=== PATIENT | male | born 2000 | race Two or more races ===

== ENCOUNTER 2024-05-12 08:42 | Emergency (ER) | payer MEDICAID, OTHER ==
[~2024-05-12] VITALS: Ht 167.6 cm; Wt 56.3 kg
[2024-05-12 09:00] VITALS: BP 112/61; PULSE 114; RESP 16; TEMP 98.3; O2SAT 100
[2024-05-12] MEDS: KETOROLAC TROMETH 60MG/2ML VIAL IM ONE (09:24)
[2024-05-12] MEDS: methylPREDNISolone SOD SUCC 125 MG/2 ML VL IM ONE (09:24)
[2024-05-12 10:29] LABS: Rapid Strep A Screen-Throat Negative
[2024-05-12] MEDS ORDERED: IBUP-1455 PO (10:40)
[2024-05-12] MEDS ORDERED: DOXY-286 PO (10:40)
[2024-05-12] MEDS ORDERED: LIDO2SOL26 PO (10:40)
[2024-05-12] MEDS: cefTRIAXone SOD 1,000 MG VL IM ONE (10:59)
== END 2024-05-12 10:42 | disposition home or self-care (01) ==
LOC: ER 08:42
DX: J35.8 Other chronic diseases of tonsils and adenoids (principal)
CPT/HCPCS: 87070; 87880; 96372; 99284; J0696; J1885; J2919